=== PATIENT | female | born 1990 | race Hispanic/Latino ===

== ENCOUNTER 2021-09-13 16:30 | Emergency (ER) | payer BC, OTHER ==
[~2021-09-13] VITALS: Ht 170.2 cm; Wt 73.9 kg
[2021-09-13] MEDS ORDERED: IBUPROFEN 800 MG TAB PO ONE (17:30)
[2021-09-13] MEDS ORDERED: ONDANSETRON ODT 4MG TAB SL ONE (17:30)
[2021-09-13] MEDS ORDERED: ACETAMINOPHEN 500 MG TABLET PO ONE (17:30)
[2021-09-13 17:57] LABS: AMPHET/METH SCREEN,URINE NEGATIVE (NEGATIVE); BARBITURATE SCREEN, URINE NEGATIVE (NEGATIVE); BENZODIAZEPINES SCREEN,URINE NEGATIVE (NEGATIVE); CANNABINOID SCREEN,URINE NEGATIVE (NEGATIVE); COCAINE SCREEN,URINE NEGATIVE (NEGATIVE); OPIATE SCREEN,URINE NEGATIVE (NEGATIVE); PHENCYCLIDINE SCREEN,URINE NEGATIVE (NEGATIVE)
[2021-09-13] MEDS ORDERED: IBUP-2070 PO (18:07)
[2021-09-13] MEDS ORDERED: ONDA4TAB10 PO (18:07)
[2021-09-13] MEDS ORDERED: ACET-2079 PO (18:07)
[2021-09-13 18:27] VITALS: BP 133/69
[2021-09-13] MEDS ORDERED: HYDROCODONE/ACETAMINOPHEN 10/325 MG TAB PO ONE (18:30)
== END 2021-09-13 18:26 | disposition home or self-care (01) ==
LOC: EDH 16:30
DX: S06.0X9A Concussion with loss of consciousness of unspecified duration, initial encounter (principal); M54.2 Cervicalgia; Z79.1 Long term (current) use of non-steroidal anti-inflammatories (NSAID); Z90.49 Acquired absence of other specified parts of digestive tract; X58.XXXA Exposure to other specified factors, initial encounter; Y93.89 Activity, other specified; Y92.89 Other specified places as the place of occurrence of the external cause; Y99.8 Other external cause status
CPT/HCPCS: 80305